=== PATIENT | male | born 1935 | race Caucasian/White ===

== ENCOUNTER 2018-05-31 05:23 | Observation (INO) ==
--- NOTE | 2018-05-27 16:11 | MH ---
cc: Annie Fierro MD DATE OF ADMISSION: 05/31/2018 ADMITTING DIAGNOSIS: Osteoarthritic degeneration of the left knee, now being admitted for left total knee arthroplasty. HISTORY OF PRESENT ILLNESS: This pleasant 82-year-old male is being admitted today for a left total knee arthroplasty due to severe painful osteoarthritic degeneration of the left knee. PAST MEDICAL HISTORY: The patient has a history of hypertension, back pain and arthritis. CURRENT MEDICATIONS: Include: 1. Amlodipine. 2. Atorvastatin. 3. Losartan. 4. Omeprazole. 5. Vitamins. PAST SURGICAL HISTORY: None. REVIEW OF SYSTEMS: Noncontributory. FAMILY HISTORY: Noncontributory. SOCIAL HISTORY: He does not smoke or drink. ALLERGIES: NO KNOWN ALLERGIES. PHYSICAL EXAMINATION: GENERAL: We find an 82-year-old male, well-developed, well-nourished, alert and oriented x 3, complaining of pain in his left knee. VITAL SIGNS: Blood pressure 120/62, pulse 90 and regular, respirations 18, temperature 98.4, pulse oximetry 98% on room air. HEENT: Eyes: PERRLA, EOMI. Ears, nose, mouth clear. NECK: Supple. LUNGS: Clear. HEART: Regular rate. ABDOMEN: Soft, positive bowel sounds, nontender. EXTREMITIES: Reveals left knee to be tender. Crepitance on range of motion. He is neurovascularly intact to his toes. IMPRESSION: Severe painful osteoarthritic degeneration of the left knee. PLAN: Admission for left total knee arthroplasty today. The patient was given a prescription for postoperative pain and anticoagulation control in the office and plans on going home after surgical stay in the hospital. MD JACOBO Hubbard/CAYLA , 03:46 PM , 03:52 PM
[2018-05-31] MEDS ORDERED: Metoprolol Tartrate 25 MG Tablet PO SCH (06:00)
[2018-05-31] MEDS ORDERED: Vancomycin Inj 1 GM/200 ML PIGGYBACK IV.SIG SCH (06:00)
[2018-05-31] MEDS ORDERED: ceFAZolin 2 GM Premix Inj 2 GM/50 ML PIGGYBACK IV.SIG SCH (06:00)
[2018-05-31] MEDS ORDERED: Tranexamic Acid Inj 1,000 MG in Sodium Chlor 0.9% Inj 100 ML IV.SIG SCH ×2 (06:00→14:00)
[2018-05-31] MEDS ORDERED: Sodium Chlor 0.9% Inj 80 ML, Bupivacaine Liposo PF 1.3% Inj 20 ML P-ARTICULR SCH ×2 (06:00)
[2018-05-31] MEDS ORDERED: Chlorhexidine Gluconate 2% 1 Pack (2 Cloths) TOPICAL SCH (06:00)
[2018-05-31] MEDS ORDERED: Chlorhexidine 4% Topical 120 APPLIC/120 ML Bottle TOPICAL SCH (06:00)
[2018-05-31] MEDS ORDERED: Sodium Chlor 0.9% Inj 500 ML IV.SIG SCH (06:00)
[2018-05-31] MEDS ORDERED: ceFAZolin Inj 2,000 MG in Sodium Chlor 0.9% Inj 100 ML IV.SIG PRN (06:15)
[2018-05-31] MEDS ORDERED: Sodium Chlor 0.9% Inj 250 ML ONE (06:29)
[2018-05-31] MEDS ORDERED: Dexamethasone Inj 20 MG/5 ML Vial ONE (06:30)
[2018-05-31] MEDS ORDERED: Bisacodyl 10 MG Supp RECTAL PRN (08:02)
[2018-05-31] MEDS ORDERED: Post-op Orders (for Pharmacy) OTHER STA (08:02)
[2018-05-31] MEDS ORDERED: Morphine Inj 4 MG/ML Vial IV.PUSH PRN (08:02)
[2018-05-31] MEDS ORDERED: *Meperidine Inj 25 MG/ML Vial PERIprocedural Use ONLY ONE (11:12)
[2018-05-31] MEDS ORDERED: fentaNYL Citrate Inj 100 MCG/2 ML Ampul ONE (11:14)
[2018-05-31] MEDS ORDERED: *morphine SULFATE 4 MG/ML PERIprocedure ONLY ONE ×3 (11:32→16:28)
[2018-05-31] MEDS ORDERED: Phenylephrine/NS 1000 MCG/10ML Syringe IV.PUSH ONE (12:00)
[2018-05-31] MEDS ORDERED: Lidocaine PF 1% Inj 5 ML Syringe INFILTRATN ONE (12:00)
--- NOTE | 2018-05-31 12:05 | XR ---
EXAM DATE: 05/31/2018 11:56 AM EDT AGE/SEX: 82 years / Male INDICATIONS: Post op left knee surgery. CLINICAL DATA: This is the patient's initial encounter. Patient reports that signs and symptoms have been present for 1 day and indicates a pain score of 8/10. MEDICAL/SURGICAL HISTORY: None. None. COMPARISON: No prior exams available for comparison. FINDINGS: The patient is post left knee arthroplasty. Orthopedic hardware is in excellent position. Alignment i s good. There is no acute fracture or subluxation. CONCLUSION: Orthopedic hardware in excellent position. Electronically signed by: Morteza Beckwith MD 05/31/2018 12:04 PM EDT
[2018-05-31] MEDS: amLODIPine 5 MG Tablet PO SCH (12:53)
[2018-05-31] MEDS: Senna/Docusate Sodium 8.6/50 MG Tablet PO SCH ×2 (13:03→21:28)
[2018-05-31] MEDS: Multivitamin/Minerals Therapeutic Tablet PO SCH ×2 (13:04→21:28)
[2018-05-31] MEDS: Pantoprazole Sodium 20 MG DR Tablet PO SCH (13:04)
[2018-05-31] MEDS: hydroCHLOROthiazide 25 MG Tablet PO SCH (13:04)
--- NOTE | 2018-05-31 13:18 | MP ---
cc: Annie Fierro MD DATE OF OPERATION: 05/31/2018 PREOPERATIVE DIAGNOSIS: Osteoarthritic degeneration, left knee. POSTOPERATIVE DIAGNOSIS: Osteoarthritic degeneration, left knee. PROCEDURE PERFORMED: Left total knee arthroplasty using Consensus components, size 6 femur, 5 tibia, 12 standard insert and 2 patella with 2 batches of antibiotic cement and 1 batch of plain DePuy cement. SURGEON: Annie Fierro MD WELDER [employer] ARC: JOHN Casper ANESTHESIA: General intubation and block. PROCEDURE: After successful induction of anesthesia, the patient is placed on the operating room table in the supine position. The knee is prepped and draped in the usual manner. A tourniquet is inflated at the upper thigh and set to 300 mmHg pressure after exsanguination of the lower extremity. A longitudinal incision is made extending from 3 inches proximal to the superior pole of the patella, across the patella in longitudinal fashion, and down past the insertion of the tibial tubercle into the proximal tibia. The incision is carried down through subcutaneous tissue along the medial aspect of the patella and retinaculum, down through the capsule to expose the knee joint. The patella and patellar tendon are freed up enough to allow the patella to be inverted and retracted off the lateral side of the knee joint. The knee joint is left exposed. Small osteophytes are removed. All soft tissue is removed to allow proper position of the femoral and tibial cutting jig guide. The first femoral jig is then inserted along the distal end of the femur after first measuring to decide whether this is a small, medium, or large component. The notch is then drilled and the tibial cutting guide inserted into the femoral cutting guide, along with the ankle brace to allow for proper measurement of the tibial cutting surface that needed to be resected. Pins are inserted into the tibial cutting jig and femoral cutting jig to hold them in place. An oscillating saw is then used to resect the surface of the tibia. The surface of the tibia is then completely removed using sharp and blunt dissection. The anterior and posterior cuts of the femur are then made as well using an oscillating saw through the cutting guide. All guides are then removed and the varus/valgus angulation cutting guide applied to the femur for proper measurement of the proper amount of valgus. The anterior cutting guide for the femur is then inserted at the anterior femoral cuts made. Next, the first block trial is inserted into the femur to allow for proper condyle drill holes to be made which are then made followed by removal of the bone between the condyles using an oscillating saw as well as the bone removed at the most posterior surface of the condyle. After this, this guide is removed and the chamfer cuts made using the chamfer cutting guide from both anterior and posterior. Next, the femoral trial is then inserted, the tibial surface reflected anterior to expose the tibial surface and a tibial stem guide is inserted after first measuring for a standard, standard plus, large, or large plus surface to be used. After the stem is impacted the trial tibial surface is applied followed by the trial meniscal components. After full range of motion is found with the appropriate length meniscal components varying the patella is prepared by resecting the posterior aspect of the patella using an oscillating saw, inserting a trial. The trial is then removed and the cruciate cutting guide applied using the bur to cut the cruciate cuts. After cruciate cuts are made all trials are removed. The wound is irrigated copiously with antibiotic solution and Water Pik and the actual components inserted into place using the aforementioned components. After the cement has hardened and the components are found to have full range of motion with no instability, the tourniquet is deflated, total tourniquet time being 88 minutes at 300 mmHg pressure. Meticulous hemostasis is achieved. 120 mL of mixture of Exparel, normal saline, and 0.25% Marcaine plain was injected around the knee joint for extra pain control and the deep fascia proximally with running #2 Quill. Subcutaneous tissue approximated using interrupted and running 3-0 sutures and Prineo dressing. No drain utilized. A knee immobilizer was then applied. The patient tolerated the procedure well and left the Operating Room in satisfactory condition. ESTIMATED BLOOD LOSS: 50 mL. COUNTS: Sponge and suture counts were correct. COMPONENTS: The components used were the aforementioned components. The patient tolerated the procedure well and left the operating room in satisfactory condition and JOHN Casper, was present during the entire procedure to include patient positioning and the procedure. The medical necessity of a nurse practitioner, after school program assistant was indicated in this case due to the surgical complexity of the case itself. During the surgical case, the surgical elastic knitter was working the back table while my surgical technician JOHN was directly assisting me. J. Josiah Fierro MD JRR/sv , 10:43 AM , 10:47 AM MTDD
--- NOTE | 2018-05-31 14:56 | P.BOP ---
- Preoperative Diagnosis (1) Osteoarthritis of left knee - Postoperative Diagnosis (1) Status post total left knee replacement using cement (2) Osteoarthritis of left knee Date of procedure: 05/31/18 Procedure: Left Total Knee Arthroplasty Implants: see implant record Anesthesia: GETA Surgeon: Annie Fierro MD Child Protective Services Specialist: Gale Ley Estimated blood loss (mL): 300 Tourniquet time (min): 88 (300 mmHg) Urine output (mL): 0 (no acuña) Pathology: none sent Condition: stable Disposition: PACU
[2018-06-01 05:52] LABS: Hematocrit 34.3 % (39.0-51.0); Hemoglobin 11.6 gm/dL (13.0-17.0)
[2018-06-01] MEDS: Multivitamin/Minerals Therapeutic Tablet PO SCH (08:38)
[2018-06-01] MEDS: hydroCHLOROthiazide 25 MG Tablet PO SCH (08:38)
[2018-06-01] MEDS: Senna/Docusate Sodium 8.6/50 MG Tablet PO SCH (08:38)
[2018-06-01] MEDS: Pantoprazole Sodium 20 MG DR Tablet PO SCH (08:39)
[2018-06-01] MEDS: amLODIPine 5 MG Tablet PO SCH (08:39)
[2018-06-01] MEDS ORDERED: ACETYLCYSTEINE 600 MG PO SCH (09:00)
--- NOTE | 2018-06-01 10:44 | P.PNOP ---
Subjective Interval history: Pt basically comfortable with minimal pain today. Physical Exam Vital signs: Vital Signs 05/31/18 11:04 05/31/18 11:15 05/31/18 11:30 Temperature 99.3 F Pulse Rate 80 86 86 Respiratory Rate 20 19 18 Blood Pressure 79/49 L 139/70 129/70 Pulse Oximetry 91 L 91 L 98 05/31/18 11:43 05/31/18 11:45 05/31/18 12:00 Temperature Pulse Rate 89 90 Respiratory Rate 15 14 Blood Pressure 128/67 124/71 Pulse Oximetry 95 95 93 L 05/31/18 12:15 05/31/18 12:30 05/31/18 13:00 Temperature Pulse Rate 90 92 H 88 Respiratory Rate 16 18 17 Blood Pressure 114/69 133/78 119/63 Pulse Oximetry 96 95 95 05/31/18 14:00 05/31/18 15:00 05/31/18 15:19 Temperature Pulse Rate 97 H 68 94 H Respiratory Rate 20 15 Blood Pressure 129/75 116/67 Pulse Oximetry 96 97 96 05/31/18 16:00 05/31/18 17:00 05/31/18 17:39 Temperature Pulse Rate 92 H 95 H 90 Respiratory Rate 14 18 Blood Pressure 120/70 100/69 Pulse Oximetry 96 98 95 05/31/18 18:00 05/31/18 18:42 05/31/18 20:00 Temperature 98.2 F 98.1 F Pulse Rate 93 H 90 89 Respiratory Rate 17 20 17 Blood Pressure 128/71 140/86 120/77 Pulse Oximetry 96 96 93 L 05/31/18 23:48 06/01/18 00:49 06/01/18 03:38 Temperature 97.5 F L 98.3 F Pulse Rate 92 H 80 Respiratory Rate 17 16 18 Blood Pressure 132/71 132/70 Pulse Oximetry 94 L 97 06/01/18 08:00 Temperature 98 F Pulse Rate 74 Respiratory Rate 18 Blood Pressure 142/79 H Pulse Oximetry 95 Intake & Output 05/31/18 06/01/18 06/01/18 18:59 06:59 18:59 Intake Total 2150 / 2150 150 / 150 Output Total 600 / 600 1100 / 1100 Balance 1550 / 1550 -950 / -950 Weight 109.1 kg Intake: IV 1800 / 1800 100 / 100 LR 1000 mL Inj 1,000 ML @ 80 400 / 400 mls/hr IV.CONT .[id number] SUNDAY Rx# :[id number] LR 1000 mL Inj 1,000 ML @ 30 1300 / 1300 mls/hr IV.SIG .Q24H SUNDAY Rx#: [id number] Ancef Inj 1,000 MG In NS Inj 100 / 100 100 / 100 100 ML @ 200 mls/hr IV.SIG Q6H SUNDAY Rx#:[id number] Oral 350 / 350 50 / 50 Output: Urine 500 / 500 1100 / 1100 Estimated Blood Loss 100 / 100 Other: Date of Last Bowel Movement 05/30/18 05/31/18 - Constitutional no acute distress Results - Labs CBC & Chem 7: 06/01/18 04:39 Laboratory Results - last 24 hr 06/01/18 04:39 Hgb 11.6 L Hct 34.3 L - Imaging Impressions Knee X-Ray 05/31/18 08:02 CONCLUSION: Orthopedic hardware in excellent position. Assessment and Plan - Attending Attestation Attending Attestation: Pt doing well sp left total knee. Sitting up in chair. Plan for dc this PM with [facility] and PT. To office next week.
--- NOTE | 2018-06-01 14:24 | P.DCO ---
- Physical Therapy Order: Evaluate and treat, Improve ambulation, Strength and gait training - Certification I have seen patient Omega Ayala on 06/01/18. My clinical findings support the need for the requested home health care services because: High risk of falls I certify that my clinical findings support that this patient is homebound because: Post-op weakness, Unsteady gait/balance
[2018-06-01] MEDS ORDERED: Vancomycin Inj 1,000 MG in Sodium Chlor 0.9% Inj 250 ML IV.SIG SCH (16:00)
== END 2018-06-01 15:38 | disposition home health service (06) ==
LOC: N06 05:23 → HSDC 05:23 → HSDI 05:23 → N06 18:52
PROVIDERS: ADMIT Surgery; ATTEND Surgery